=== PATIENT | male | born 1975 | race Caucasian/White ===

== ENCOUNTER 2017-03-17 13:17 | Emergency (ER) | payer BC ==
[2017-03-17] MEDS ORDERED: Aspirin 81 MG Tab.Chew PO ONE (13:38)
[2017-03-17] MEDS ORDERED: Alum Hydrox/Mag Hydrox/Simeth 30 ML, Lidocaine 2% 15 ML PO ONE ×2 (13:39)
[2017-03-17] MEDS ORDERED: Sodium Chloride 0.9% 10 ML Syringe FLUSH PRN (13:39)
--- NOTE | 2017-03-17 13:44 | EDM.PDOC ---
<Chan Hodges - Last Filed: 03/17/17 15:28> ED HPI GENERAL MEDICAL PROBLEM - General Chief Complaint: Chest Pain Stated Complaint: DIZZY/CHEST PRESSURE Time Seen by Provider: 03/17/17 13:30 - Related Data Allergies Allergy/AdvReac Type Severity Reaction Status Date / Time No Known Allergies Allergy Verified 03/17/17 13:41 Home Meds: Home Meds Lisinopril 10 mg PO DAILY #30 tablet 03/17/17 [Rx] ED ROS GENERAL - Review of Systems Review Of Systems: See Below (See review of systems as documented by Darell Lala) Course - Vital Signs Last Recorded V/S: Last Vital Signs Temp 98.1 F 03/17/17 13:27 Pulse 70 03/17/17 15:55 Resp 18 03/17/17 15:55 BP 148/99 H 03/17/17 15:55 Pulse Ox 98 03/17/17 15:55 - Orders/Labs/Meds Labs: Laboratory Tests 03/17/17 03/17/17 Range/Units 13:45 13:45 WBC 6.51 (4.23-9.07) K/mm3 RBC 5.25 (4.63-6.08) M/mm3 Hgb 16.2 (13.7-17.5) gm/L Hct 47.1 (40.1-51.0) % MCV 89.7 (79.0-92.2) fl MCH 30.9 (25.7-32.2) pg MCHC 34.4 (32.2-35.5) g/dl RDW Std Deviation 44.7 H (35.1-43.9) fL Plt Count 226 (163-337) K/mm3 MPV 9.3 L (9.4-12.3) fl Neut % (Auto) 61.3 (34.0-67.9) % Lymph % (Auto) 23.8 (21.8-53.1) % [place] % (Auto) 10.9 (5.3-12.2) % Eos % (Auto) 3.2 (0.8-7.0) Baso % (Auto) 0.5 (0.1-1.2) % Neut # (Auto) 3.99 (1.78-5.38) K/mm3 Lymph # (Auto) 1.55 (1.32-3.57) K/mm3 [place] # (Auto) 0.71 (0.30-0.82) K/mm3 Eos # (Auto) 0.21 (0.04-0.54) K/mm3 Baso # (Auto) 0.03 (0.01-0.08) K/mm3 Sodium 139 (136-145) mEq/L Potassium 3.8 (3.5-5.1) mEq/L Chloride 103 (98-107) mEq/L Carbon Dioxide 23 (21-32) mEq/L Anion Gap 16.8 H (5-15) BUN 18 (7-18) mg/dL Creatinine 1.0 (0.7-1.3) mg/dL Est Cr Clr Drug Dosing 92.15 mL/min Estimated GFR (MDRD) > 60 (>60) mL/min BUN/Creatinine Ratio 18.0 (14-18) Glucose 93 (74-106) mg/dL Calcium 9.2 (8.5-10.1) mg/dL Total Bilirubin 0.8 (0.2-1.0) mg/dL AST 36 (15-37) U/L ALT 72 H (16-63) U/L Alkaline Phosphatase 48 (46-116) U/L Troponin I < 0.017 (0.00-0.056) ng/mL C-Reactive Protein 0.8 (<1.0) mg/dL Total Protein 8.2 (6.4-8.2) g/dl Albumin 4.4 (3.4-5.0) g/dl Globulin 3.8 gm/dL Albumin/Globulin Ratio 1.2 (1-2) Meds: Medications Discontinued Medications Generic Name Dose Route Start Last Admin Trade Name Freq PRN Reason Stop Dose Admin Aspirin 324 mg 03/17/17 13:38 03/17/17 13:46 Aspirin PO 03/17/17 13:39 324 mg ONETIME ONE Administration Al Hydroxide/Mg Hydroxide 30 0 ml 03/17/17 13:39 03/17/17 13:48 ml/ Lidocaine HCl 15 ml PO 03/17/17 13:40 45 ml ONETIME ONE Administration Sodium Chloride 10 ml 03/17/17 13:39 03/17/17 13:49 Saline Flush FLUSH 10 ml ASDIRECTED PRN Administration Keep Vein Open - Re-Assessments/Exams Free Text/Narrative Re-Assessment/Exam: 03/17/17 15:28 Initial history, exam was done by EMMA Packer working with me today. I have also interviewed patient, examined patient, evaluated EKG and also reviewed his labs. I've spent considerable time visiting with patient regarding findings. His blood pressure readings have continued to run relatively high month especially his diastolics running in the 90s and low 100s. Therefore we are going to start him on lisinopril 10 mg daily. Risks have been discussed. Discharge instructions as documented Departure - Departure Time of Disposition: 15:08 Disposition: Home, Self-Care 01 Condition: Fair Clinical Impression: Atypical chest pain Hypertension Qualifiers: Hypertension type: essential hypertension Qualified Code(s): I10 - Essential ( primary) hypertension Prescriptions: Lisinopril 10 mg PO DAILY #30 tablet Instructions: Hypertension, [id number], Angina Pectoris, [id number] Referrals: PCP,Not In Area [Primary Care Provider] - Forms: ED Department Discharge Additional Instructions: Take omeprazole as previously prescribed once daily for at least the next 2 weeks to reduce stomach acid, Healthy diet, avoid flour and sugar foods as much as possible, read up on the Mediterranean diet as that has been shown to be a more healthy diet than the typical [place] diet, try to lose the extra weight that you are carrying, try begin a regular exercise program as best you can, lisinopril as prescribed for hypertension, get a blood pressure cuff, check your blood pressure at least once or twice daily, keep a log for your regular provider back home, see your regular provider in 1-2 weeks when he gets back home, return to ED if symptoms worsening in any way <Darell Lala O - Last Filed: 03/21/17 19:38> ED HPI GENERAL MEDICAL PROBLEM - General Source of Information: Reports: Patient History Limitations: Reports: No Limitations - History of Present Illness INITIAL COMMENTS - FREE TEXT/NARRATIVE: Patient is a 41-year-old male who presents to the ED complaining of chest tightness. States this started Wednesday night. Symptoms have been persistent with no precipitating factors. He's been feeling tired and run down. States he has intermittent dizziness with position changes. No sensation of the room spinning. No worsening pain with exertion. States he just recently returned back to [place] to work for the next 2 weeks. 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 States with leaving home he is feeling a little anxious. He just arrived back to [place] yesterday. Denies any pain with breathing. Nor does he have any discomfort to his lower legs are swelling present. He's never had symptoms as such in the past. There is no first degree relative with coronary artery disease. He does state there is some intermittent sharp pain present. Currently does not have any nausea,SOB, abdominal pain, dysuria, or any additional complains. There's been no fever present. Patient has no documented past medical history and currently taking no medications. Surgical history noncontributory. Patient does not smoke or utilize recreational drug use. He only drinks alcohol occasionally. Bilateral Chest Pain Score (Numeric/FACES): 4 ED EXAM, GENERAL - Physical Exam Exam: See Below Exam Limited By: No Limitations General Appearance: Alert, WD/WN, No Apparent Distress Ears: Hearing Grossly Normal Nose: Normal Inspection Throat/Mouth: Normal Voice, No Airway Compromise Neck: Normal Inspection, Supple, Non-Tender, Full Range of Motion Respiratory/Chest: No Respiratory Distress, Lungs Clear, Normal Breath Sounds, Chest Non-Tender Cardiovascular: Normal Peripheral Pulses, Regular Rate, Rhythm, No Murmur Peripheral Pulses: 2+: Radial (L), Radial (R) GI/Abdominal: Normal Bowel Sounds, Soft, Non-Tender, No Distention Back Exam: Normal Inspection Extremities: Normal Inspection, Non-Tender, No Pedal Edema, Normal Capillary Refill Neurological: Alert, Oriented, Normal Cognition Psychiatric: Normal Affect, Normal Mood Skin Exam: Warm, Dry, Intact, Normal Color Course - Orders/Labs/Meds Labs: Laboratory Tests 03/17/17 03/17/17 Range/Units 13:45 13:45 WBC 6.51 (4.23-9.07) K/mm3 RBC 5.25 (4.63-6.08) M/mm3 Hgb 16.2 (13.7-17.5) gm/L Hct 47.1 (40.1-51.0) % MCV 89.7 (79.0-92.2) fl MCH 30.9 (25.7-32.2) pg MCHC 34.4 (32.2-35.5) g/dl RDW Std Deviation 44.7 H (35.1-43.9) fL Plt Count 226 (163-337) K/mm3 MPV 9.3 L (9.4-12.3) fl Neut % (Auto) 61.3 (34.0-67.9) % Lymph % (Auto) 23.8 (21.8-53.1) % [place] % (Auto) 10.9 (5.3-12.2) % Eos % (Auto) 3.2 (0.8-7.0) Baso % (Auto) 0.5 (0.1-1.2) % Neut # (Auto) 3.99 (1.78-5.38) K/mm3 Lymph # (Auto) 1.55 (1.32-3.57) K/mm3 [place] # (Auto) 0.71 (0.30-0.82) K/mm3 Eos # (Auto) 0.21 (0.04-0.54) K/mm3 Baso # (Auto) 0.03 (0.01-0.08) K/mm3 Sodium 139 (136-145) mEq/L Potassium 3.8 (3.5-5.1) mEq/L Chloride 103 (98-107) mEq/L Carbon Dioxide 23 (21-32) mEq/L Anion Gap 16.8 H (5-15) BUN 18 (7-18) mg/dL Creatinine 1.0 (0.7-1.3) mg/dL Est Cr Clr Drug Dosing 92.15 mL/min Estimated GFR (MDRD) > 60 (>60) mL/min BUN/Creatinine Ratio 18.0 (14-18) Glucose 93 (74-106) mg/dL Calcium 9.2 (8.5-10.1) mg/dL Total Bilirubin 0.8 (0.2-1.0) mg/dL AST 36 (15-37) U/L ALT 72 H (16-63) U/L Alkaline Phosphatase 48 (46-116) U/L Troponin I < 0.017 (0.00-0.056) ng/mL C-Reactive Protein 0.8 (<1.0) mg/dL Total Protein 8.2 (6.4-8.2) g/dl Albumin 4.4 (3.4-5.0) g/dl Globulin 3.8 gm/dL Albumin/Globulin Ratio 1.2 (1-2) - Re-Assessments/Exams Free Text/Narrative Re-Assessment/Exam: IV established. Ordered aspirin 324 mg by mouth and also GI cocktail by mouth. Initial labs and studies include CBC, chem 14, troponin, chest x-ray one view, and CRP. EKG revealed: Sinus rhythm at a rate of [address] changes noted. Chest x-ray revealed: No acute abnormalities. Final interpretation pending. Reviewed with Dr. Hodges.
--- NOTE | 2017-03-17 14:35 | CR ---
Chest: Portable view of the chest was obtained. Comparison: No prior chest x-ray. Heart size and mediastinum are within normal limits. Lungs are clear. Old healed right upper rib fracture is noted. Impression: 1. Nothing acute is identified on portable chest x-ray. Diagnostic code #2
[2017-03-17 16:09] VITALS: BP 148/99
== END 2017-03-17 15:55 | disposition home or self-care (01) ==
LOC: JD.ED 13:17
DX: R07.89 Other chest pain (principal); I10 Essential (primary) hypertension; Z79.899 Other long term (current) drug therapy
CPT/HCPCS: 36415; 71010; 80053; 84484; 85025; 86140; 93005; 99285; A9270; J7050